=== PATIENT | male | born 1995 | race Caucasian/White ===

== ENCOUNTER 2017-06-11 12:11 | Emergency (ER) | payer SELFPAY ==
--- NOTE | 2017-06-11 12:45 | RADIOLOGY REPORT (SQ) ---
EXAM DESCRIPTION: ELBOW RIGHT OVER 2 VIEWS COMPLETED DATE/TIME: 06/11/2017 12:33 pm REASON FOR STUDY: Injury blunt COMPARISON: None. NUMBER OF VIEWS: Four views. TECHNIQUE: AP, lateral, and both oblique radiographic images acquired of the right elbow. LIMITATIONS: None. FINDINGS: MINERALIZATION: Normal. BONES: No acute fracture or dislocation. No worrisome bone lesions. JOINT: No effusion. SOFT TISSUES: No soft tissue swelling. No foreign body. OTHER: No other significant finding. IMPRESSION: NEGATIVE STUDY OF THE RIGHT ELBOW. NO RADIOGRAPHIC EVIDENCE OF ACUTE INJURY. TECHNICAL DOCUMENTATION: JOB ID: [id number] [employer]- All Rights Reserved
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
[2017-06-11 13:36] VITALS: BP 129/85
== END 2017-06-11 13:35 | disposition home or self-care (01) ==
LOC: ER 12:11
DX: S59.901A Unspecified injury of right elbow, initial encounter (principal); M79.641 Pain in right hand; M25.521 Pain in right elbow; V29.9XXA Motorcycle rider (driver) (passenger) injured in unspecified traffic accident, initial encounter
CPT/HCPCS: 99283

== ENCOUNTER 2018-01-15 16:57 | Emergency (ER) | payer BC ==
[2018-01-15] MEDS ORDERED: IBUPROFEN 800 MG TABLET PO ONE (18:16)
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
[2018-01-15 20:10] VITALS: BP 120/74
== END 2018-01-15 20:21 | disposition home or self-care (01) ==
LOC: ER 16:57
DX: S60.051A Contusion of right little finger without damage to nail, initial encounter (principal); M79.644 Pain in right finger(s); W22.09XA Striking against other stationary object, initial encounter; Z98.890 Other specified postprocedural states; Z88.2 Allergy status to sulfonamides; Z72.0 Tobacco use
CPT/HCPCS: 99283

== ENCOUNTER 2018-03-20 11:18 | Emergency (ER) | payer BC ==
[2018-03-20 11:23] VITALS: BP 135/87
[2018-03-20] MEDS ORDERED: IBUPROFEN 800 MG TABLET PO ONE (11:34)
--- NOTE | 2018-03-20 11:35 | ER Document Report ---
HPI - HPI Patient complains to provider of: Finger injury Onset: Other - 2 days ago Onset/Duration: Persistent Quality of pain: Achy Pain Level: 4 Context: Patient states that he crushed his left third finger under a log 4 days ago. Patient states that he went to an urgent care and his finger was numbed up and then they stuck a finger underneath his fingernail and attempted to drain blood. Patient states then that he squeezed the finger to get blood to drain from the tip. Patient states that he has had persistent pain. Patient states that he was also placed on an antibiotic for possible infection at that time. Patient is right-hand dominant. Associated Symptoms: Other - left 3rd finger pain Exacerbated by: Movement Relieved by: Denies Similar symptoms previously: No Recently seen / treated by doctor: Yes - ROS ROS below otherwise negative: Yes Systems Reviewed and Negative: Yes All other systems reviewed and negative - NEURO Neurology: DENIES: Weakness - REPRODUCTIVE Reproductive: DENIES: : - MUSCULOSKELETAL Musculoskeletal: REPORTS: Extremity pain, Swelling - DERM Skin Color: Ecchymosis Past Medical History - General Information source: Patient - Social History Smoking Status: Current Every Day Smoker Frequency of alcohol use: None Drug Abuse: None Occupation: logging Family History: None, Reviewed & Not Pertinent Patient has suicidal ideation: No Patient has homicidal ideation: No - Medical History Medical History: Negative Renal/ Medical History: Denies: Hx Peritoneal Dialysis Musculoskeletal Medical History: Reports Hx Musculoskeletal Trauma Psychiatric Medical History: Reports: Hx Anxiety, Hx Attention Deficit Hyperactivity Disorder, Hx Depression Traumatic Medical History: Reports: Hx Fractures - Shoulder, ACL tear Past Surgical History: Reports: Hx Orthopedic Surgery - right hand, knee - Immunizations Immunizations up to date: Yes Hx Diphtheria, Pertussis, Tetanus Vaccination: - unknown Vertical Provider Document - CONSTITUTIONAL Agree With Documented VS: Yes Exam Limitations: No Limitations General Appearance: WD/WN, No Apparent Distress - INFECTION CONTROL TRAVEL OUTSIDE OF THE [place] IN LAST 30 DAYS: No - HEENT HEENT: Atraumatic, Normocephalic - NECK Neck: Normal Inspection - RESPIRATORY Respiratory: No Respiratory Distress - CARDIOVASCULAR Pulses: Normal: Radial - MUSCULOSKELETAL/EXTREMETIES Musculoskeletal/Extremeties: MAEW, FROM, Tender - left 3rd finger tip pain, swelling, no tendon deficit, Edema, Eccymosis - NEURO Level of Consciousness: Awake, Alert, Appropriate Motor/Sensory: No Motor Deficit - DERM Integumentary: Warm, Dry Course - Vital Signs Vital signs: Temp Pulse Resp BP Pulse Ox 98.5 F 93 16 135/87 H 98 03/20/18 11:22 03/20/18 11:22 03/20/18 11:22 03/20/18 11:22 03/20/18 11:22 - Diagnostic Test Radiology reviewed: Pending, Image reviewed Procedures - Immobilization Left Finger 3rd digit Pre-Proc Neuro Vasc Exam: Normal Immobilizer type: Finger splint (Static) Performed by: PCT Post-Proc Neuro Vasc Exam: Normal Alignment checked and good: Yes Discharge - Discharge Clinical Impression: Finger fracture, left Qualifiers: Encounter type: initial encounter Finger: middle finger Fracture type: closed Phalanx: distal Fracture alignment: nondisplaced Qualified Code(s): S62.663A - Nondisplaced fracture of distal phalanx of left middle finger, initial encounter for closed fracture Condition: Stable Disposition: HOME, SELF-CARE Instructions: Fractured Finger ([facility]), Ice & Elevation ([facility]), Oral Narcotic Medication ([facility]), Splint Precautions ([facility]) Additional Instructions: Return immediately for any new or worsening symptoms Followup with your primary care provider, call tomorrow to make a followup appointment Follow-up with orthopedics for further evaluation, call tomorrow for an appointment Prescriptions: Hydrocodone/Acetaminophen [[place] 5-325 Tablet] 1 each PO Q4 PRN #10 tablet PRN Reason: Forms: Return to Work Referrals: SHANNON ARAUJO DO [ACTIVE STAFF] - Follow up tomorrow
--- NOTE | 2018-03-20 12:22 | RADIOLOGY REPORT (SQ) ---
EXAM DESCRIPTION: FINGER LEFT COMPLETED DATE/TIME: 03/20/2018 12:06 pm REASON FOR STUDY: crush injury, L 3rd finger COMPARISON: None. NUMBER OF VIEWS: Three views. TECHNIQUE: AP, lateral, and oblique images acquired of the left 3rd finger. LIMITATIONS: None. FINDINGS: MINERALIZATION: Normal. BONES: There is a bony density adjacent to the distal tuft left 3rd distal phalanx laterally which c ould represent avulsion fracture. Subungual opacity is noted in this region. SOFT TISSUES: No soft tissue swelling. No foreign body. OTHER: No other significant finding. IMPRESSION: An avulsion fracture from the distal tuft of the left 3rd distal phalanx cannot be exclu ded. TECHNICAL DOCUMENTATION: JOB ID: [id number] [employer]- All Rights Reserved Reading location - IP/workstation name: [email or web address]
== END 2018-03-20 12:44 | disposition home or self-care (01) ==
LOC: ER 11:18
DX: S62.663A Nondisplaced fracture of distal phalanx of left middle finger, initial encounter for closed fracture (principal); F17.200 Nicotine dependence, unspecified, uncomplicated; W23.1XXA Caught, crushed, jammed, or pinched between stationary objects, initial encounter
CPT/HCPCS: 99283

== ENCOUNTER 2018-07-13 06:25 | Emergency (ER) | payer BC ==
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
--- NOTE | 2018-07-13 07:32 | ER Document Report ---
ED Hand/Wrist Injury - General Chief Complaint: Hand Injury Stated Complaint: HAND INJURY Time Seen by Provider: 07/13/18 07:18 Notes: 23-year-old male was working on a motorcycle engine when it fell off a standing crushed his hand. This happened yesterday. His hand has been swelling. He is also noticed that his right middle finger at the proximal interphalangeal joint has been swelling and he saw a little bit of pus. Patient has cuts all over his hands. He denies fever chills. Describes the pain as aching and throbbing. Rates the pain is severe TRAVEL OUTSIDE OF THE [place] IN LAST 30 DAYS: No - Related Data Allergies/Adverse Reactions: Sulfa (Sulfonamide Antibiotics) Allergy (Verified 01/15/18 16:58) Past Medical History - Social History Smoking Status: Unknown if Ever Smoked Family History: None, Reviewed & Not Pertinent Renal/ Medical History: Denies: Hx Peritoneal Dialysis Musculoskeletal Medical History: Reports Hx Musculoskeletal Trauma Psychiatric Medical History: Reports: Hx Anxiety, Hx Attention Deficit Hyperactivity Disorder, Hx Depression Traumatic Medical History: Reports: Hx Fractures - Shoulder, ACL tear Past Surgical History: Reports: Hx Orthopedic Surgery - right hand, knee - Immunizations Immunizations up to date: Yes Hx Diphtheria, Pertussis, Tetanus Vaccination: - unknown Review of Systems - Review of Systems Musculoskeletal: Other - Hand pain and swelling Skin: Other - Multiple cuts on both hands -: Yes All other systems reviewed and negative Physical Exam - Vital signs Vitals: Temp Pulse Resp BP Pulse Ox 98 F 91 16 136/94 H 100 07/13/18 06:26 07/13/18 06:26 07/13/18 06:26 07/13/18 06:26 07/13/18 06:26 - Notes Notes: GENERAL_APPEARANCE: well_nourished, alert, cooperative VITALS: reviewed, see vital signs table. HEAD: no_swelling\tenderness on the head. EYES: conjunctiva_clear. NOSE: no_nasal_discharge. MOUTH: (-)decreased moisture. NECK: supple, no_neck_tenderness, (-)thyromegaly. EXTREMITIES: Right hand is swollen there are multiple cuts and abrasions on both hands. The right middle finger proximal interphalangeal joint knuckle there is a small amount of redness and swelling there there is a little bit of what could be thought is fluctuance. Brisk cap refill at all nailbeds. SKIN: warm, dry, good_color, no_rash. MENTAL_STATUS: speech_clear, oriented_X_3, normal_affect, responds_appropriately to questions. Course - Re-evaluation Re-evalutation: 07/13/18 07:30 X-rays show no fractures. The right middle finger interphalangeal joint seemed a little fluctuant and may have been more edema than anything I took a #11 scalpel just made a quick stab and only blood and lymph came out no pus. No anesthesia was done. Patient tolerated this very well. Patient's wound was dressed he states his tetanus is up-to-date we will place him on antibiotics and something for pain and inflammation. - Vital Signs Vital signs: Temp Pulse Resp BP Pulse Ox 98 F 91 16 136/94 H 100 07/13/18 06:26 07/13/18 06:26 07/13/18 06:26 07/13/18 06:26 07/13/18 06:26 Discharge - Discharge Clinical Impression: Infected laceration Crush injury of hand Qualifiers: Encounter type: initial encounter Laterality: right Qualified Code(s): S67.21XA - Crushing injury of right hand, initial encounter Condition: Good Disposition: HOME, SELF-CARE Instructions: Laceration Care ([facility]), Crush Injury ([facility]) Prescriptions: Amox Tr/Potassium Clavulanate [Augmentin 875-125 Tablet] 1 tab PO BID 10 Days tablet Diclofenac Sodium [Voltaren] 75 mg PO BID PRN #20 tablet.dr SWANSON Reason: Pain Scale Of 5
[2018-07-13 08:13] VITALS: BP 129/76
== END 2018-07-13 07:45 | disposition home or self-care (01) ==
LOC: ER 06:25
DX: S67.21XA Crushing injury of right hand, initial encounter (principal); W20.8XXA Other cause of strike by thrown, projected or falling object, initial encounter; Z88.2 Allergy status to sulfonamides
CPT/HCPCS: 99283